=== PATIENT | male | born 1990 | race Caucasian/White ===

== ENCOUNTER 2017-05-29 10:04 | Emergency (ER) | payer SELFPAY ==
[~2017-05-29] VITALS: Ht 165.1 cm; Wt 68.0 kg
[2017-05-29 10:12] VITALS: BP 144/76
[2017-05-29] MEDS ORDERED: AMOX/CLAVULANATE 250 MG TABLET PO ONE (10:30)
[2017-05-29] MEDS ORDERED: TDAP [DIPH/PERTUSSIS/TET] 0.5 ML VIAL IM ONE ×2 (10:30→10:35)
[2017-05-29] MEDS ORDERED: AMOX/CLAVULANATE 250 MG TABLET ONE (10:35)
== END 2017-05-29 10:47 | disposition home or self-care (01) ==
LOC: ER 10:06
DX: S51.851A Open bite of right forearm, initial encounter (principal); F17.200 Nicotine dependence, unspecified, uncomplicated; W54.0XXA Bitten by dog, initial encounter; Y93.89 Activity, other specified; Y92.89 Other specified places as the place of occurrence of the external cause; Y99.8 Other external cause status
CPT/HCPCS: 90471; 90715; 99283; A4606; A6402; Z7610